=== PATIENT | female | born 1935 | race Caucasian/White ===

== ENCOUNTER 2018-10-22 11:43 | Outpatient (REF) | payer OTHER, SELFPAY ==
[2018-10-22 21:56] LABS: Potassium 3.5 mmol/L (3.5-5.1)
== END 2018-10-22 12:03 ==
LOC: NCHCN 11:43
PROVIDERS: Visit Provider Internal Medicine
DX: I49.9 Cardiac arrhythmia, unspecified (principal)
CPT/HCPCS: 84132

== ENCOUNTER 2018-11-30 09:52 | Outpatient (REF) | payer OTHER, SELFPAY ==
[2018-11-30 13:58] LABS: HCT 37.4 % (36.0-46.0); HGB 13.1 g/dL (12.0-15.5); Mean Corpuscular Hemoglobin 31.6 pg (27.0-33.0); Mean Corpuscular Volume 90.1 fL (80-95); Platelet Count 212 x1000/uL (130-400); RBC 4.15 m/cumm (4.00-5.20); RBC Distribution Width 12.1 % (11.7-14.6); White Blood Cell Count 7.27 k/cumm (4.4-10.8)
[2018-11-30 14:13] LABS: ALT 39 U/L (12-78); AST 23 U/L (15-37); Albumin 3.7 g/dL (3.4-5.0); Alkaline Phosphatase 64 U/L (46-116); Anion Gap 4.7 mmol/L (3-11); BUN 17 mg/dL (7-18); Bilirubin, Total 0.3 mg/dL (0.2-1.0); CO2 34.3 mmol/L (21.0-32.0); CREATININE 0.82 mg/dL (0.55-1.02); Calcium 9.1 mg/dL (8.5-10.1); Chloride 89 mmol/L (98-107); Glucose 106 mg/dL (70-100); Sodium 128 mmol/L (136-145); Total Protein 6.8 g/dL (6.4-8.2)
[2018-11-30 14:19] LABS: Potassium 2.9 mmol/L (3.5-5.1)
== END 2018-11-30 10:12 ==
LOC: NCHCN 09:52
PROVIDERS: PCP Internal Medicine; Visit Provider Internal Medicine
DX: R42 Dizziness and giddiness (principal)
CPT/HCPCS: 80053; 85027

== ENCOUNTER 2018-12-01 09:54 | Outpatient (REF) | payer OTHER, SELFPAY ==
[2018-12-01 13:26] LABS: ESR 31 MM/HR (0-30)
== END 2018-12-01 10:14 ==
LOC: NCHCN 09:54
PROVIDERS: PCP Internal Medicine; Visit Provider Internal Medicine
DX: R51 Headache (principal); I10 Essential (primary) hypertension; R42 Dizziness and giddiness
CPT/HCPCS: 85652

== ENCOUNTER 2018-12-04 00:40 | Outpatient (CLI) | payer OTHER, SELFPAY ==
--- NOTE | 2018-12-04 13:51 | DI.CT_ITS ---
SYMPTOMS/DIAGNOSIS: DISEQUILIBRIUM, R42, BALANCE PROBLEMS, R27.[address]: Noncontrast cranial CT was performed. Note is made of apparent previous bilateral maxillary antrectomies and there is mild mucoperiosteal thickening of the maxillary antra. Ethmoidectomy may have been performed on both sides as well. Mastoid air cells are clear. Orbital structures appear intact. Temporal bone structures appear intact. There is marked generalized cerebral atrophy. There is no evidence of intracranial hemorrhage, mass effect or midline shift. CONCLUSION: Cerebral atrophy. No evidence of acute intracranial process.
== END 2018-12-04 01:00 ==
PROVIDERS: PCP Internal Medicine; Visit Provider Internal Medicine
DX: R42 Dizziness and giddiness (principal); R27.9 Unspecified lack of coordination; G31.1 Senile degeneration of brain, not elsewhere classified
CPT/HCPCS: 70450

== ENCOUNTER 2018-12-22 15:07 | Outpatient (REF) | payer OTHER, SELFPAY ==
[2018-12-22 21:46] LABS: Anion Gap 6.9 mmol/L (3-11); BUN 14 mg/dL (7-18); CO2 31.1 mmol/L (21.0-32.0); CREATININE 0.89 mg/dL (0.55-1.02); Calcium 9.3 mg/dL (8.5-10.1); Chloride 102 mmol/L (98-107); Glucose 97 mg/dL (70-100); Potassium 4.3 mmol/L (3.5-5.1); Sodium 140 mmol/L (136-145)
== END 2018-12-22 15:27 ==
LOC: NCHCN 15:07
PROVIDERS: PCP Internal Medicine; Visit Provider Internal Medicine
DX: I10 Essential (primary) hypertension (principal); E87.6 Hypokalemia; E87.1 Hypo-osmolality and hyponatremia; R42 Dizziness and giddiness
CPT/HCPCS: 80048

== ENCOUNTER → 2019-04-20 10:20 | Outpatient (BNVA) | payer OTHER, SELFPAY | PROVIDERS: PCP Internal Medicine; Referring Provider Otolaryngology; Visit Provider Psychiatry & Neurology Neurology | DX: H55.09 Other forms of nystagmus (principal); R42 Dizziness and giddiness; I10 Essential (primary) hypertension | CPT/HCPCS: 99205 ==

== ENCOUNTER 2019-04-28 00:47 | Outpatient (CLI) | payer OTHER, SELFPAY ==
--- NOTE | 2019-04-28 09:36 | DI.MRI_ITS ---
SYMPTOM/DIAGNOSIS: ATAXIA, R55.09, NYSTAGMUS, DIZZINESS, R42 BRAIN MRI: Comparison is made with head CT dated 12/04/18. T 2 sagittal, T 1, T 2, FLAIR, diffusion and gradient echo axial sequences were performed. Severe symmetric cerebral atrophy is again noted. There are mild white matter changes of small vessel disease. There is no superimposed infarct, hemorrhage or mass. The ventricles are normal in size. There is mild sinus mucosal thickening and evidence of previous sinus surgery. The mastoid air cells appear intact. The vascular flow voids are grossly intact. The orbits are unremarkable. IMPRESSION: Atrophy, no acute abnormality.
== END 2019-04-28 01:07 ==
PROVIDERS: PCP Internal Medicine; Visit Provider Psychiatry & Neurology Neurology
DX: R42 Dizziness and giddiness (principal); H55.09 Other forms of nystagmus; G31.89 Other specified degenerative diseases of nervous system; R90.82 White matter disease, unspecified
CPT/HCPCS: 70551

== ENCOUNTER 2019-05-01 08:07 | Outpatient (CLI) | payer OTHER, SELFPAY ==
[2019-05-01 10:42] LABS: Vitamin B12 408 pg/mL (193-986)
[2019-05-03 13:55] LABS: Albumin 65.1 % (55.8-66.1); Total Protein 7.2 g/dl (6.3-8.2)
[2019-05-03 14:43] LABS: ANA Interpretation Negative (NEGAT)
[2019-05-04 10:45] LABS: Copper, Serum 1.17 mcg/mL (0.75-1.45)
[2019-05-04 11:43] LABS: Ceruloplasmin 26.6 mg/dL
[2019-05-05 00:57] LABS: Thiamine (Vitamin B1), WB 98 nmol/L (70-180)
== END 2019-05-01 08:27 ==
PROVIDERS: PCP Internal Medicine; Visit Provider Psychiatry & Neurology Neurology
DX: G62.9 Polyneuropathy, unspecified (principal); H55.09 Other forms of nystagmus; R42 Dizziness and giddiness
CPT/HCPCS: 36415; 82390; 82525; 82607; 82746; 84165; 84425; 86038

== ENCOUNTER → 2019-05-18 08:03 | Outpatient (BNVA) | payer OTHER, SELFPAY | PROVIDERS: PCP Internal Medicine; Referring Provider Internal Medicine; Visit Provider Psychiatry & Neurology Neurology | DX: H55.09 Other forms of nystagmus (principal); R42 Dizziness and giddiness; R26.9 Unspecified abnormalities of gait and mobility; I10 Essential (primary) hypertension | CPT/HCPCS: 99214 ==

== ENCOUNTER 2020-02-29 11:55 | Outpatient (REF) | payer OTHER, SELFPAY ==
[2020-02-29 21:20] LABS: HCT 41.6 % (36.0-46.0); HGB 14.2 g/dL (12.0-15.5); Mean Corp. HGB Concentration 34.1 g/dL (32.0-36.0); Mean Corpuscular Hemoglobin 31.8 pg (27.0-33.0); Mean Corpuscular Volume 93.1 fL (80-95); Platelet Count 184 x1000/uL (130-400); RBC 4.47 m/cumm (4.00-5.20); RBC Distribution Width 12.7 % (11.7-14.6); White Blood Cell Count 6.09 k/cumm (4.4-10.8)
[2020-02-29 22:03] LABS: ALT 29 U/L (14-59); AST 22 U/L (15-37); Albumin 4.1 g/dL (3.4-5.0); Alkaline Phosphatase 61 U/L (46-116); Anion Gap 7.6 mmol/L (3-11); BUN 14 mg/dL (7-18); Bilirubin, Total 0.4 mg/dL (0.2-1.0); CO2 28.4 mmol/L (21.0-32.0); CREATININE 0.76 mg/dL (0.55-1.02); Calcium 9.3 mg/dL (8.5-10.1); Chloride 101 mmol/L (98-107); Glucose 108 mg/dL (74-106); Potassium 4.9 mmol/L (3.5-5.1); Sodium 137 mmol/L (136-145); TSH 2.25 uIU/mL (0.36-3.74); Total Protein 7.1 g/dL (6.4-8.2); Vitamin B12 353 pg/mL (193-986)
[2020-03-02 04:52] LABS: Vitamin D 25 Total 28.2 ng/ml (30-100)
== END 2020-02-29 12:15 ==
LOC: NCHCN 11:55
PROVIDERS: PCP Internal Medicine; Visit Provider Internal Medicine
DX: E55.9 Vitamin D deficiency, unspecified (principal); G62.9 Polyneuropathy, unspecified; R42 Dizziness and giddiness; I10 Essential (primary) hypertension
CPT/HCPCS: 80053; 82306; 85027; 82607; 84443

== ENCOUNTER 2020-07-03 15:03 | Outpatient (REF) | payer OTHER, SELFPAY ==
[2020-07-03 21:56] LABS: Anion Gap 11.9 mmol/L (3-11); BUN 21 mg/dL (7-18); CO2 24.1 mmol/L (21.0-32.0); CREATININE 0.76 mg/dL (0.55-1.02); Calcium 9.4 mg/dL (8.5-10.1); Chloride 101 mmol/L (98-107); Glucose 95 mg/dL (74-106); Potassium 4.4 mmol/L (3.5-5.1); Sodium 137 mmol/L (136-145)
== END 2020-07-03 15:23 ==
LOC: NCHCN 15:03
PROVIDERS: PCP Internal Medicine; Visit Provider Internal Medicine
DX: I10 Essential (primary) hypertension (principal); R42 Dizziness and giddiness; I25.10 Atherosclerotic heart disease of native coronary artery without angina pectoris; G62.9 Polyneuropathy, unspecified; J45.30 Mild persistent asthma, uncomplicated
CPT/HCPCS: 80048

== ENCOUNTER → 2021-05-18 11:18 | Outpatient (BNVA) | payer OTHER, SELFPAY | PROVIDERS: PCP Internal Medicine; Referring Provider Internal Medicine; Visit Provider Surgery | DX: M79.89 Other specified soft tissue disorders (principal); R22.2 Localized swelling, mass and lump, trunk | CPT/HCPCS: 99203; 99214 ==

== ENCOUNTER 2021-06-08 01:05 | Outpatient (CLI) | payer MEDICARE, SELFPAY ==
--- NOTE | 2021-06-08 06:57 | DI.MRI_ITS ---
Exam(s) MR PELVIS WO/W EXAM: MR PELVIS WO/W CLINICAL HISTORY: Left upper buttock mass,M79.89 TECHNIQUE: Multiplanar multisequence MRI of Pelvis was performed. CONTRAST MATERIAL: IV Contrast: 14 mL of Dotarem contrast administered. COMPARISON: No exams were available for comparison FINDINGS: Bones: There is no fracture or contusion pattern. No bone marrow edema is seen. The visualized SI j oint is well maintained. Musculotendinous structures: Musculotendinous structures demonstrate no abnormality. Intrapelvic str uctures demonstrate no significant abnormality. Soft tissues: There is a 3.6 transverse by 3.6 AP by 3.7 craniocaudad cm mass in the subcutaneous tis sues of the left buttock. It is just deep to the skin surface. There is no involvement of the under lying gluteal muscles or iliac bone. There is minimal associated edema in the surrounding soft tissu es. The mass is hypo intense on the T1 weighted images. There is central hyperintensity on the T2 w eighted images. The mass has a peripheral thick wall with fluid signal centrally. There is enhancem ent following contrast administration particularly in the inner wall. IMPRESSION: 3.7 cm subcutaneous mass in the left buttock corresponding to the palpable abnormality. Differential considerations include, but are not limited to, fibromatosis, abscess, metastasis or sarcoma. Biops y should be considered for further evaluation. DATA REPOSITORY:
[2021-06-08 08:28] LABS: CREATININE 0.8 mg/dL (0.55-1.02)
[2021-06-08] MEDS: Normal Saline Flush 10 ML SYR IVP (08:46)
[2021-06-08] MEDS: Gadoterate meglumine 20 ML VIAL 14 ML IVP (08:48)
== END 2021-06-08 01:25 ==
PROVIDERS: PCP Internal Medicine; Visit Provider Surgery
DX: M79.89 Other specified soft tissue disorders (principal); Z01.812 Encounter for preprocedural laboratory examination; R22.2 Localized swelling, mass and lump, trunk
CPT/HCPCS: 72197; 82565

== ENCOUNTER → 2021-06-19 10:45 | Outpatient (BNVA) | payer MEDICARE, SELFPAY | PROVIDERS: PCP Internal Medicine; Referring Provider Internal Medicine; Visit Provider Surgery | DX: M79.89 Other specified soft tissue disorders (principal) | CPT/HCPCS: 99213 ==

== ENCOUNTER 2021-06-25 03:27 | Outpatient (CLI) | payer MEDICARE, SELFPAY ==
[2021-06-25 10:29] LABS: Source Nasal/Nares
[2021-06-25 13:39] LABS: COVID-19 PCR Negative (Negative)
== END 2021-06-25 03:28 | disposition home or self-care (01) ==
LOC: LBO 03:27
PROVIDERS: PCP Internal Medicine; Visit Provider Surgery
DX: Z20.822 Contact with and (suspected) exposure to COVID-19 (principal); Z01.818 Encounter for other preprocedural examination
CPT/HCPCS: 87635

== ENCOUNTER 2021-06-27 06:11 | Day surgery (SDC) | payer MEDICARE, SELFPAY ==
--- NOTE | 2021-06-27 06:29 | ROE_ITS ---
Date of service: 06/27/21 Time of Service: 07:30 Operative Note Operative Note DATE OF PROCEDURE: 06/27/21 PRE-OP DIAGNOSIS: left upper Buttock mass POST-OP DIAGNOSIS: same PROCEDURE: Excision of left upper buttock mass SURGEON: Amalia Varner DRIVING TEACHER: Delicia Sarkar ANESTHESIA TYPE: Local By Surgeon (exparel mixed with 0.25% Bupivocaine) and General:No Airway Refer to Anesthesia Record ESTIMATED BLOOD LOSS: 25 PATHOLOGY: other (mass 4 cm) COMPLICATIONS: None Patient was transported to: PACU Patient's condition: stable Implants: ABRAHAN dressing applied in the Operating room Indications: MRI showed a 3.7 cm mass. Differential includes benign and malignant process. Discussed core needle biopsy vs excisional biopsy. In both cases she may need more then one surgery depending on results. Sweta wants the mass removed. We discussed procedure including its complications. Risks, benefits and complications were reviewed of both excisional biopsy and needle core biopsy. Patient wishes to proceed with excisional biopsy. Complications of excisional biopsy include but are not limited to bleeding, infection, seroma, hematoma, wound dehiscence, skin necrosis and adverse reaction to the medications. Questions were entertained and answered to her satisfaction and she wished to proceed. No guarantees were given or implied. I will have her stop her aspirin 5 days prior to the procedure. Proceed with excisional biopsy of left buttock mass under MAC sedation with lo [place]. Findings: 4 cm hard mass attached to the skin. Procedure Description: After informed consent was obtained and the area was marked and same-day surgery the patient was taken back to the operating room and placed in a right lateral position. Monitors were applied and a timeout was done. Name, date of , allergies to medications, antibiotic prophylaxis, DVT prophylaxis and procedure to be done and site were reviewed. Fire risk was assessed. Next the patient's left upper buttock was prepped and draped in a sterile surgical fashion. The patient was placed under MAC sedation. The above local anesthetic was then injected into the dermis and subcutaneous tissue around the mass. Once the skin was numb a 4 cm elliptical incision was made over the palpable mass. Dissection was done with cautery around the mass. Grossly there was about a centimeter of normal tissue around the palpable mass. Once it was completely dissected it was removed and marked with suture. The specimen was removed from the operating field and placed in formalin for pathology. There were couple of bleeders which were grasped with hemostats. Both of these vessels were suture-ligated. The wound was irrigated and small bleeders were cauterized. Once the cavity was completely dry it was closed with interrupted 3-0 Vicryl suture. The dermis was closed with a running 4-0 Vicryl stitch. The skin was cleaned and dried and a 10 x 20 abrahan dressing was applied. Sponge, instrument and needle counts were correct. The patient was allowed to wake up slowly and was then transferred over to her rmoose and taken back to same-day surgery in stable condition. There were no immediate complications.
--- NOTE | 2021-06-27 06:31 | W.PM.DSUDISC ---
Discharge Plan Disposition Patient Disposition: HOME Condition: Good Discharge Details Reason For Visit: left buttock mass Attending Provider: Amalia Varner Primary Care Provider: Wang Guzmán Home Meds and New Rx's Prescriptions: Continued metoprolol succinate 25 mg tablet extended release 24 hr 25 mg PO DAILY RF: 0 Metamucil (sugar) Powder 1 tbsp PO DAILY RF: 0 albuterol sulfate [ProAir HFA] 90 mcg/actuation HFA aerosol inhaler 1 puff IH Q6H PRNRF: 0 fluticasone propionate 110 mcg/actuation HFA aerosol inhaler 2 puff IH DAILY RF: 0 pantoprazole 40 mg tablet,delayed release (DR/EC) 40 mg PO HS PRNRF: 0 Serevent Diskus 50 mcg/dose blister with device 1 inh inhalation DAILY RF: 0 sodium chloride [Verónica 128] 5 % drops 1 drp ophthalmic (eye) QHS RF: 0 lovastatin 40 MG tablet 40 mg PO HS RF: 0 aspirin [Aspirin Low-Strength] 81 MG tablet,chewable 81 mg PO DAILY RF: 0 Discharge Instructions Additional Instructions: Activity at Home after surgery: 1. Make sure you walk outside at least 4 times per day 2. You should be able to climb a flight of stairs 3. No driving while in pain or taking pain medications 4. No strenuous activity or heavy lifting for 2 weeks 5. Do not sit for long periods Diet, Nutrition, & wound healin. Avoid alcohol until after you are recovered from your surgery 2. Make sure to eat plenty of lean protein (meat, fish, eggs, cottage cheese, beans) 3. Eat a variety of fruits and vegetables. Eat plenty of high fiber foods to avoid constipation. 4. Drink plenty of liquids to stay hydrated and avoid constipation Pain Medications: 1. Tylenol 650mg every 6 hours as needed 2. If a narcotic has been prescribed take as directed only for breakthrough pain For Constipation: 1. Take Milk of Magnesia or MiraLax as needed for constipation Other: 1. You may shower daily. Do not scrub the incisions 2. Do not soak the incisions for 1 week 3. You may alternate ice and heat as needed for pain and swelling Wound Care: 1. Keep the incisions clean and dry Please call our office if you develop: 1. Fevers >101.5 2. Nausea or Vomiting 3. Worsening pain 4. Redness and thick discharge from the wounds If after hours please call the Hospital at and ask to speak to the on-call surgeon Referrals: Amalia Varner MD [ [facility] STAFF PHYSICIAN] - 07/03/21 1:45 pm Activity:: Activity as Tolerated Diet:: As Tolerated Discharge Orders Discharge Orders: Discharge Order (Routine); Ordered 06/27/21 Ordered By: Amalia Varner
[2021-06-27 06:42] VITALS: BP 186/56; PULSE 63; RESP 16; TEMP 36.3; O2SAT 99
[2021-06-27 06:46] VITALS: BMI 30.3
--- NOTE | 2021-06-27 06:46 | W.ANESPRE ---
General Info Date of Service Date Performed: 06/27/21 Height: 5 ft Weight: 70.477 kg Body Mass Index (BMI): 30.3 Surgical Procedure: Operation Date: 06/27/21 07:40 Proposed Procedures Side Surgeon p Excision of left buttock soft mass Left Amalia Varner MD Meds Allergies and Home Medications Allergies Allergy/AdvReac Type Severity Reaction Status Date / Time NSAIDS (Non-Steroidal Allergy Mild unknown Verified 06/27/21 06:35 Anti-Inflamma Home Medication Medication Instructions Recorded aspirin [Aspirin Low-Strength] 81 mg PO DAILY 12/13/13 lovastatin 40 mg PO HS 12/13/13 albuterol sulfate 90 mcg/actuation 1 puff IH Q6H PRN 02/08/19 aerosol inhaler fluticasone propionate 110 2 puff IH DAILY gm 02/08/19 mcg/actuation HFA aerosol inhaler pantoprazole 40 mg tablet,delayed 40 mg PO HS PRN 05/18/19 release salmeterol 50 mcg/dose blister 1 inh INHALATION DAILY ea 05/10/21 powder for inhalation sodium chloride 5 % eye drops 1 drp OPHTHALMIC (EYE) QHS 05/10/21 metoprolol succinate 25 mg 25 mg PO DAILY 05/18/21 tablet,extended release 24 hr psyllium seed (sugar) oral powder 1 tbsp PO DAILY 06/19/21 Current Visit Medications: Current Medications Generic Name Dose Route Start Last Admin Trade Name Freq PRN Reason Stop Dose Admin Ringer's Solution 1,000 mls @ 80 mls/hr 06/27/21 06:00 IV 07/17/21 23:59 INFUSION ANGELICA Cefazolin Sodium 2,000 mg/ 100 mls @ 200 mls/hr 06/27/21 06:00 Sodium Chloride IVPB 06/27/21 16:00 PREOP ANGELICA Ondansetron HCl 4 mg/ Sodium 52 mls @ 200 mls/hr 06/27/21 06:33 Chloride IVPB Q6H PRN PRN IV Miscellaneous Supplies 1 each 06/27/21 06:00 Iv Access IV 07/17/21 23:59 DIRECTED ANGELICA Sodium Chloride 0 ml 06/27/21 06:00 Normal Saline Flush 10 Ml Syr IV 07/17/21 23:59 PRN PRN Sodium Chloride 0 ml 06/27/21 06:00 Normal Saline 10 Ml Vial IJ 07/17/21 23:59 DIRECTED PRN Sterile Water 0 ml 06/27/21 06:00 Water,Injection,Sterile 10 Ml Vial IJ 07/17/21 23:59 DIRECTED PRN Tramadol HCl 50 mg 06/27/21 06:33 Tramadol 50 Mg Tab PO Q6H PRN PRN Pain PFSH Active Problems Active Problems: Problem Status Onset Code 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 states in the 80's History of hysterectomy Hx of nasal polypectomy S/P right knee surgery R knee Tobacco Smoking/Tobacco Use Status: Former Tobacco Use Alcohol Alcohol Intake: never Substance Use Substance use: Never Substance use type: does not use Vital Signs and Lab Results Lab Results Blood Type / Crossmatch: No Data to Display Complete Blood Count: No Data to Display Complete Metabolic Panel: Creatinine 0.8 mg/dL (0.55-1.02) 06/08/21 08:10 06/08/21 Estimated GFR/1.73 m2 >= 60.00 (mL/min/1.73m2) 06/08/21 08:10 06/08/21 Liver Function Panel: No Data to Display Coagulation Panel: No Data to Display Cardiac Panel: No Data to Display Arterial Blood Gas: No Data to Display Venous Blood Gas: No Data to Display Pancreas Panel: No Data to Display Thyroid Panel: No Data to Display Infectious Disease: Coronavirus (COVID-19)(PCR) Negative (Negative) 06/25/21 09:25 06/25/21 Coronavirus 2019 Source Nasal/Nares 06/25/21 09:25 06/25/21 Blood Cultures: No Data to Display Toxicology Panel: No Data to Display Imaging and Studies Imaging and Studies Stress Test Summary: Date of study: 03/04/2018 *PATIENT PRESENTATION* Height: 152.4cm (60in) Blood Pressure: Weight: 68.2kg (150lb) BSA: 1.72m^2 Referring physician: Derek Gillespie Ordering physician: Wang Guzmán MD Impressions: Normal study after maximal exercise. Summary: 1. Myocardial perfusion imaging: No myocardial perfusion defects noted. 2. The calculated left ventricular ejection fraction after stress: > 70%. LV global systolic function is normal. No left ventricular regional motion abnormality. 3. Stress ECG conclusions: The stress ECG is negative. 4. Stress: The target heart rate was achieved. There is a normal resting blood pressure with an appropriate response to stress. The patient experienced no chest pain during stress. Exercise capacity is fair (4.8 METS). 5. Imaging information: gated. Image quality reduced due to breast attenuation. Attenuation correction used. Echocardiogram Summary: October 25, 2013 OUTPATIENT ORDERING PHYSICIAN: Angelique Jacobo MD HEIGHT: 5 FT 0 IN WEIGHT: 150 LBS BSA: 1.7 m2 STUDY INDICATIONS: PVCs. FINDINGS: LEFT VENTRICLE: Normal size and systolic function. Normal regional wall motion. Estimated LVEF 70%. RIGHT VENTRICLE: Normal size and systolic function. AORTIC VALVE: Trileaflet, sclerotic. Opens well, without regurgitation. MITRAL VALVE: Opens well, with mild regurgitation. TRICUSPID VALVE: Trace regurgitation. RSV/PA PRESSURE: RSV pressure 35 mmHg. PULMONIC VALVE: Trace regurgitation. LEFT/RIGHT ATRIA: Normal biatrial size. DIASTOLIC INDICES: Normal. GREAT VESSELS: Normal. PERICARDIUM: No effusion. RHYTHM: SUMMARY: Rhythm is sinus. The left ventricle shows normal size and systolic function. Estimated LVEF 70%. Normal LA size. The aortic valve is trileaflet, thickened. Opens well, without regurgitation. Mitral valve opens normally with mild regurgitation present. The right ventricle is normal. Normal pulmonary artery pressure. Other Study Summary:: HOLTERDATE OF SERVICE: October 18, 2013 HOLTER INTERPRETATION: Baseline rhythm sinus. Rare single PAC. 2 bursts SVT, longest 4 beats duration, fastest 181 beats per minute. No atrial fibrillation. Very frequent single PVCs, 4311 total. No VT. No bradycardia. 1 diary event during the sinus rhythm with single PVC. No symptoms. Mean one-minute heart rate 83 beats per minute, range 65 - 117 beats per minute. Anesthesia Assessment and Plan Anesthesia History Personal History: No History of Anesthesia Complications Family History: No Family History of Anesthesia Complications Exercise Tolerance Exercise Tolerance: Metabolic Equivalents>4 Pertinent Negatives Pertinent Negatives: No Symptoms of GERD, No Major Cardiovascular Symptoms or Complaints, No Major Pulmonary Symptoms or Complaints and No History of CVA/TIA Cardiac & Pulmonary Exam Cardiac Exam: Normal S1/S2 Heart Sounds Pulmonary Exam: Clear Bilateral Breath Sounds Implantable Cardiac Device Does patient have a Pacemaker or an ICD?: No Airway Exam Known Difficult Airway: No Mallampati Class: 2 Mouth Opening: Normal (> 3cm) Thyromental Distance: Greater than 3 cm Neck Range of Motion: Full ROM Neck Circumference: Normal Teeth Condition: Normal Dentition and Removable Dentures/Plates Upper ASA Classification ASA Score: ASA 2 Emergency Case?: No NPO Status NPO Status: NPO Clears >2 hours, Solids >8 hours Anesthesia Plan Resuscitation Status: Full Code Anesthesia Technique: General Anesthesia Airway Planned: Natural Airway Monitors Used: Standard Monitors
[2021-06-27] MEDS: Lactated Ringers 1,000 ML 80 ML IV (07:05)
[2021-06-27] MEDS: ceFAZolin 2,000 MG in Normal Saline 100 ML 200 MG IVPB (07:28)
--- NOTE | 2021-06-27 07:45 | SOFT_PTH ---
PATIENT: Sweta Marie LOC: [facility] U#:[id number] AGE/SX: 85/F ROOM: RE06/27/[address]: Amalia Varner MD : [id number] BED: DIS: 06/27/2021 SPEC #: [id number] RECD: 06/27/21 12:47 STATUS: OSMAR REEladio #: [id number] MYNOR: 06/27/21 07:[address]: Amalia Varner DEPT: Surgical Specimen RECD BY: Darlene Person ENTERED: 06/27/21 12:48 SP TYPE: SOFT OTHR DR: Wang Guzmán Tissues: 1 - SOFT TISSUE MISC (INC. LIPOMA) Procedures: IMMUNOPEROXIDASE STAIN GROSS AND MICRO LEVEL 5 Comments: [id number]
[2021-06-27] MEDS: Bupivacaine 0.25% Pres-Free 30 ML VIAL (08:09)
[2021-06-27 08:19] VITALS: BP 120/63; PULSE 62; RESP 18; TEMP 36.4; O2SAT 95
--- NOTE | 2021-06-27 08:20 | W.ANESPOSTOP ---
Postoperative Evaluation Date, Time and Location Date Performed: 06/27/21 Time Performed: 08:21 Patient Location: Day Surgery Unit Vital Signs Most Recent Imported Vital Signs: Most Recent Vital Signs Temp Pulse Resp BP Pulse Ox 36.3 C L 63 16 186/56 H 99 06/27/21 06:42 06/27/21 06:42 06/27/21 06:42 06/27/21 06:42 06/27/21 06:42 Most Recent Manually Entered Vital Signs: Adult Blood Pressure: 120/63 Heart Rate: 63 Respirations: 12 Oxygen Saturation (%): 94 Temperature (C): 36.4 C Pain Score (0-10 Scale): 0 Pain Score Most Recent Pain Score: Most Recent Pain Score Pain Level 0 06/27/21 06:42 Assessment Mental Status: Awake (Alert & Oriented to Patient Baseline) Airway and Respiratory Function: Patent airway with normal (patient baseline) respiratory exam Cardiovascular Function: Hemodynamically Stable Hydration Status: Adequately Hydrated Nausea & Vomiting: No Nausea or Vomiting Pain: Pt. Denies Any Pain Peripheral Nerve Block: Patient did not receive a nerve block
[2021-06-27 08:22] VITALS: BP 120/63; PULSE 63; RESP 12; TEMPC 36.4; O2SAT 94
[2021-06-27 08:50] VITALS: BP 154/68; PULSE 60; RESP 18; TEMP 36.3; O2SAT 97
[2021-06-27] MEDS: traMADol 50 MG TAB PO (09:04)
[2021-06-27 09:35] VITALS: BP 151/63; PULSE 62; RESP 20; TEMP 36.3; O2SAT 98
== END 2021-06-27 10:00 | disposition home or self-care (01) ==
PROVIDERS: PCP Internal Medicine; Visit Provider Surgery
PROC: (CPT 21931; principal; 2021-06-27 07:30)
DX: R22.2 Localized swelling, mass and lump, trunk (principal); I25.10 Atherosclerotic heart disease of native coronary artery without angina pectoris; I10 Essential (primary) hypertension; C85.19 Unspecified B-cell lymphoma, extranodal and solid organ sites
CPT/HCPCS: 21931; 97607; 88304; 88307; 88361; J0690; J1100; J1885; J2001; J2250; J2405

== ENCOUNTER → 2021-07-03 13:28 | Outpatient (BNVA) | payer MEDICARE, SELFPAY | PROVIDERS: PCP Internal Medicine; Referring Provider Internal Medicine; Visit Provider Surgery | DX: Z48.817 Encounter for surgical aftercare following surgery on the skin and subcutaneous tissue (principal) ==

== ENCOUNTER → 2021-07-10 09:19 | Outpatient (BNVA) | payer MEDICARE, SELFPAY | PROVIDERS: PCP Internal Medicine; Referring Provider Internal Medicine; Visit Provider Surgery | DX: Z48.817 Encounter for surgical aftercare following surgery on the skin and subcutaneous tissue (principal); C85.19 Unspecified B-cell lymphoma, extranodal and solid organ sites ==

== ENCOUNTER 2021-11-07 08:07 | Outpatient (CLI) | payer MEDICARE, SELFPAY ==
[2021-11-07 09:07] LABS: Abs Immature Grans 0.02 10^3/uL (0.0-0.06); Absolute Basophil Count 0.03 10^3/uL (0.0-0.2); Absolute Eosinophil Count 0.15 10^3/uL (0.0-0.7); Absolute Monocyte Count 0.61 10^3/uL (0.1-0.8); Absolute Neutrophil Count 3.71 10^3/uL (1.2-6.7); Basophils % 0.4; Eosinophils % 2.2; HCT 43.8 % (36.0-46.0); HGB 14.1 g/dL (11.2-15.7); Immature Grans % 0.3; Lymphocytes % 33.7; MCH 29.8 pg (27.0-33.0); MCHC 32.2 % (32.0-36.0); MCV 92.6 fL (80-95); MPV 9.9 fL (8.0-11.0); Monocytes % 8.9; Neutrophils % 54.5; Nucleated RBC 0 %; Platelet Count 187 10^3/uL (130-400); RBC 4.73 10^6/uL (3.93-5.22); RDW 12.8 % (11.7-14.6); RDW-SD 43.8 fL; WBC 6.82 10^3/uL (4.4-10.8)
[2021-11-07 09:22] LABS: ALT 26 U/L (14-59); AST 22 U/L (15-37); Alkaline Phosphatase 63 U/L (46-116); Anion Gap 8.2 mmol/L (3-11); BUN 17 mg/dL (7-18); Bilirubin, Total 0.4 mg/dL (0.2-1.0); CO2 28.8 mmol/L (21.0-32.0); CREATININE 0.8 mg/dL (0.55-1.02); Chloride 102 mmol/L (98-107); Glucose 124 mg/dL (74-106); LDH 166 U/L (81-234); Potassium 4.4 mmol/L (3.5-5.1); Sodium 139 mmol/L (136-145); Total Protein 7.7 g/dL (6.4-8.2)
[2021-11-08 09:19] LABS: IgA 106 mg/dL (85-499); IgG 823 mg/dL (610-1,616); IgM 58 mg/dL (35-242)
== END 2021-11-07 08:08 | disposition home or self-care (01) ==
LOC: LBO 08:14
PROVIDERS: PCP Internal Medicine; Visit Provider Internal Medicine Hematology & Oncology
DX: C82.10 Follicular lymphoma grade II, unspecified site (principal)
CPT/HCPCS: 36415; 80053; 82784; 83615; 85025

== ENCOUNTER 2022-05-23 15:31 | Outpatient (CLI) | payer MEDICARE, SELFPAY ==
[2022-05-23 14:49] LABS: Abs Immature Grans 0.02 10^3/uL (0.0-0.06); Absolute Basophil Count 0.04 10^3/uL (0.0-0.2); Absolute Eosinophil Count 0.09 10^3/uL (0.0-0.7); Absolute Lymphocyte Count 0.99 10^3/uL (1.2-3.4); Absolute Monocyte Count 0.52 10^3/uL (0.1-0.8); Absolute Neutrophil Count 4.46 10^3/uL (1.2-6.7); Basophils % 0.7; Eosinophils % 1.5; HCT 42.1 % (36.0-46.0); HGB 14.1 g/dL (11.2-15.7); Immature Grans % 0.3; Lymphocytes % 16.2; MCH 30.4 pg (27.0-33.0); MCHC 33.5 % (32.0-36.0); MCV 91 fL (80-95); MPV 10.1 fL (8.0-11.0); Monocytes % 8.5; Neutrophils % 72.8; Platelet Count 155 10^3/uL (130-400); RBC 4.64 10^6/uL (3.93-5.22); RDW 12.8 % (11.7-14.6); RDW-SD 42.6 fL; WBC 6.12 10^3/uL (4.4-10.8)
[2022-05-23 14:59] LABS: C-Reactive Protein 0.51 mg/dL (0.0-0.3)
[2022-05-23 15:02] LABS: ESR 10 mm/hr (0-30)
== END 2022-05-23 15:32 | disposition home or self-care (01) ==
LOC: LBO 15:34
PROVIDERS: PCP Internal Medicine
DX: M31.6 Other giant cell arteritis (principal)
CPT/HCPCS: 36415; 85652; 85025; 86140

== ENCOUNTER → 2022-06-04 02:39 | Outpatient (CLI) | payer MEDICARE, SELFPAY ==
--- NOTE | 2022-06-04 15:30 | DI.CT_ITS ---
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 TECHNIQUE: Imaging Protocol: Axial computed tomography images with coronal and sagittal reformatted images were created and reviewed COMPARISON: CT CT HEAD WO from 12/04/2018 FINDINGS: Ventricles and Extra axial spaces: Normal in size and morphology for the patient's age. Hemorrhage: None. Cerebral parenchyma: There is no acute territorial infarct. There are areas of decreased attenuation in the white matter consistent with small vessel ischemic disease. Midline shift: None. Brainstem/Cerebellum: Normal. Calvarium: Normal. Visualized Paranasal sinuses/Mastoids: Postsurgical changes are seen in the sinuses. No fluid levels are seen. The mastoid air cells are clear. Soft Tissues: Unremarkable. IMPRESSION: No acute intracranial process. RADIATION DOSE DELIVERED: 692.22mGy.cm Total DLP DATA REPOSITORY: All CT scans at this facility are submitted to the National Radiology Data Registry (NRDR) Dose Index Registry (DIR) with the [employer] (A[employer]). RADIATION OPTIMIZATION: All CT scans at this facility use at least one of these dose optimization te chniques: automated exposure control; mA and/or kV adjustment per patient size (includes targeted exa ms where dose is matched to clinical indication); or iterative reconstruction.
== END ==
PROVIDERS: PCP Internal Medicine; Visit Provider Internal Medicine
DX: M31.6 Other giant cell arteritis (principal); G44.89 Other headache syndrome
CPT/HCPCS: 70450

== ENCOUNTER 2022-11-18 15:58 | Outpatient (REF) | payer MEDICARE, SELFPAY ==
[2022-11-18 19:14] LABS: HCT 41.4 % (36.0-46.0); HGB 13.8 g/dL (11.2-15.7); MCH 30.7 pg (27.0-33.0); MCHC 33.3 % (32.0-36.0); MCV 92 fL (80-95); MPV 10.9 fL (8.0-11.0); Platelet Count 193 10^3/uL (130-400); RBC 4.49 10^6/uL (3.93-5.22); RDW 12.8 % (11.7-14.6); RDW-SD 43.2 fL; WBC 6.22 10^3/uL (4.4-10.8)
[2022-11-18 19:18] LABS: Anion Gap 6.8 mmol/L (3-11); BUN 17 mg/dL (7-18); CO2 30.2 mmol/L (21.0-32.0); CREATININE 0.8 mg/dL (0.55-1.02); Chloride 101 mmol/L (98-107); Estimated GFR 71.27 (mL/min/1.73m2); Glucose 129 mg/dL (74-106); Potassium 4.1 mmol/L (3.5-5.1); Sodium 138 mmol/L (136-145)
== END 2022-11-18 15:59 | disposition home or self-care (01) ==
LOC: NCHCN 15:58
PROVIDERS: PCP Internal Medicine; Visit Provider Internal Medicine
DX: I10 Essential (primary) hypertension (principal); R42 Dizziness and giddiness
CPT/HCPCS: 80048; 85027

== ENCOUNTER 2022-11-27 02:51 | Outpatient (CLI) | payer MEDICARE, SELFPAY ==
[2022-11-27 11:10] LABS: Abs Immature Grans 0.03 10^3/uL (0.0-0.06); Absolute Basophil Count 0.04 10^3/uL (0.0-0.2); Absolute Eosinophil Count 0.14 10^3/uL (0.0-0.7); Absolute Lymphocyte Count 2.71 10^3/uL (1.2-3.4); Absolute Monocyte Count 0.73 10^3/uL (0.1-0.8); Absolute Neutrophil Count 4.26 10^3/uL (1.2-6.7); Basophils % 0.5; Eosinophils % 1.8; HCT 42.7 % (36.0-46.0); HGB 14.1 g/dL (11.2-15.7); Immature Grans % 0.4; Lymphocytes % 34.3; MCH 30.3 pg (27.0-33.0); MCV 92 fL (80-95); MPV 10.6 fL (8.0-11.0); Monocytes % 9.2; Neutrophils % 53.8; Platelet Count 179 10^3/uL (130-400); RBC 4.66 10^6/uL (3.93-5.22); RDW-SD 43.4 fL; WBC 7.91 10^3/uL (4.4-10.8)
[2022-11-27 11:33] LABS: ALT 35 U/L (14-59); AST 21 U/L (15-37); Alkaline Phosphatase 72 U/L (46-116); Anion Gap 7.9 mmol/L (3-11); BUN 13 mg/dL (7-18); Bilirubin, Total 0.4 mg/dL (0.2-1.0); CO2 30.1 mmol/L (21.0-32.0); CREATININE 0.9 mg/dL (0.55-1.02); Calcium 9.2 mg/dL (8.5-10.1); Chloride 104 mmol/L (98-107); Estimated GFR 61.87 (mL/min/1.73m2); Glucose 98 mg/dL (74-106); LDH 228 U/L (81-234); Potassium 4.4 mmol/L (3.5-5.1); Sodium 142 mmol/L (136-145); Total Protein 7.5 g/dL (6.4-8.2)
== END 2022-11-27 02:52 | disposition home or self-care (01) ==
PROVIDERS: Internal Medicine Hematology & Oncology; PCP Internal Medicine; Visit Provider Internal Medicine Hematology & Oncology
DX: C82.19 Follicular lymphoma grade II, extranodal and solid organ sites (principal)
CPT/HCPCS: 36415; 80053; 83615; 85025

== ENCOUNTER 2023-01-10 13:17 | Outpatient (CLI) | payer MEDICARE, SELFPAY ==
[2023-01-10 13:11] LABS: ESR 12 mm/hr (0-30)
[2023-01-10 13:30] LABS: Hemoglobin A1C 6.1 % (<5.7)
[2023-01-10 13:39] LABS: Calculated LDL 64 mg/dL (<100); Cholesterol 178 mg/dL (<200); Glucose 189 mg/dL (74-106); HDL Cholesterol 51 mg/dL (40-60); Triglyceride 316 mg/dL (<150)
[2023-01-10 13:47] LABS: C-Reactive Protein 0.08 mg/dL (0.0-0.3)
== END 2023-01-10 13:18 | disposition home or self-care (01) ==
LOC: LBO 13:18
PROVIDERS: PCP Internal Medicine; Visit Provider Optometrist
DX: H34.8120 Central retinal vein occlusion, left eye, with macular edema (principal)
CPT/HCPCS: 36415; 80061; 82947; 85652; 83036; 86140

== ENCOUNTER 2023-05-28 14:09 | Outpatient (CLI) | payer MEDICARE, SELFPAY ==
[2023-05-28 12:46] LABS: Abs Immature Grans 0.02 10^3/uL (0.0-0.06); Absolute Basophil Count 0.04 10^3/uL (0.0-0.2); Absolute Eosinophil Count 0.12 10^3/uL (0.0-0.7); Absolute Monocyte Count 0.54 10^3/uL (0.1-0.8); Absolute Neutrophil Count 3.84 10^3/uL (1.2-6.7); Basophils % 0.6; Eosinophils % 1.7; HCT 39.4 % (36.0-46.0); HGB 13.2 g/dL (11.2-15.7); Immature Grans % 0.3; Lymphocytes % 37.2; MCH 30.6 pg (27.0-33.0); MCHC 33.5 % (32.0-36.0); MCV 91 fL (80-95); MPV 10.1 fL (8.0-11.0); Monocytes % 7.4; Neutrophils % 52.8; Platelet Count 188 10^3/uL (130-400); RBC 4.31 10^6/uL (3.93-5.22); RDW 12.7 % (11.7-14.6); RDW-SD 42.4 fL; WBC 7.26 10^3/uL (4.4-10.8)
[2023-05-28 13:06] LABS: ALT 27 U/L (14-59); AST 20 U/L (15-37); Albumin 3.7 g/dL (3.4-5.0); Alkaline Phosphatase 69 U/L (46-116); Anion Gap 8.7 mmol/L (3-11); BUN 13 mg/dL (7-18); Bilirubin, Total 0.3 mg/dL (0.2-1.0); CO2 26.3 mmol/L (21.0-32.0); CREATININE 0.8 mg/dL (0.55-1.02); Calcium 9.1 mg/dL (8.5-10.1); Chloride 101 mmol/L (98-107); Estimated GFR 71.27 (mL/min/1.73m2); Glucose 154 mg/dL (74-106); LDH 171 U/L (81-234); Potassium 3.9 mmol/L (3.5-5.1); Sodium 136 mmol/L (136-145); Total Protein 7.2 g/dL (6.4-8.2)
== END 2023-05-28 14:10 | disposition home or self-care (01) ==
LOC: LBO 14:09
PROVIDERS: PCP Internal Medicine; Visit Provider Internal Medicine Hematology & Oncology
DX: C82.19 Follicular lymphoma grade II, extranodal and solid organ sites (principal)
CPT/HCPCS: 36415; 80053; 83615; 85025

== ENCOUNTER 2023-10-16 13:30 | Emergency (ER) | payer MEDICARE, SELFPAY ==
[2023-10-16 13:39] VITALS: BP 210/71; PULSE 76; RESP 18; TEMP 36.8; O2SAT 97
--- NOTE | 2023-10-16 14:05 | W.ED.GENAD ---
Discharge Plan Discharge Details Chief Complaint: HeadInjury Primary Care Provider: Wang Guzmán ED Provider: Tri Fontanez Home Meds and New Rx's Prescriptions: No Action metoprolol succinate 25 mg tablet extended release 24 hr 25 mg PO DAILY Metamucil (sugar) Powder 1 tbsp PO DAILY albuterol sulfate [ProAir HFA] 90 mcg/actuation HFA aerosol inhaler 1 puff IH Q6H PRN fluticasone propionate 110 mcg/actuation HFA aerosol inhaler 2 puff IH DAILY pantoprazole 40 mg tablet,delayed release (DR/EC) 40 mg PO HS PRN Patient Comments: Pt. states she takes prn. Serevent Diskus 50 mcg/dose blister with device 1 inh inhalation DAILY sodium chloride [Verónica 128] 5 % drops 1 drp ophthalmic (eye) QHS lovastatin 40 MG tablet 40 mg PO HS aspirin [Aspirin Low-Strength] 81 MG tablet,chewable 81 mg PO DAILY tramadol [Ultram] 50 mg tablet 50 mg PO Q6H PRNQty: 14 0RF HPI General Date/Time Provider Initiated Documentation: 10/16/23 13:35. HPI Narrative: Sweta is an 87-year-old female who presents to the emergency department for evaluation of head injury. She reports that she turned around quickly while putting something in the microwave, causing her to slip and fall, hitting her head on the microwave stand. She denies loss of consciousness, headache, vision changes, neck pain, dental damage, back pain, nausea/vomiting, loss of bowel or bladder control, extremity numbness/tingling/weakness. She is not on any anticoagulation. She does have a longstanding history of vertigo, has had this extensively treated and managed by her doctors. Related Data Home Medications Medication Instructions Recorded Confirmed aspirin 81 mg chewable tablet 81 mg PO DAILY 12/13/13 07/10/21 (Aspirin Low-Strength) lovastatin 40 mg tablet 40 mg PO HS 12/13/13 07/10/21 albuterol sulfate 90 mcg/actuation 1 puff inhalation Q6H PRN 02/08/19 07/10/21 aerosol inhaler (ProAir HFA) fluticasone propionate 110 2 puff inhalation DAILY 02/08/19 07/10/21 mcg/actuation HFA aerosol inhaler pantoprazole 40 mg tablet,delayed 40 mg PO HS PRN 05/18/19 07/10/21 release salmeterol 50 mcg/dose blister 1 inh inhalation DAILY 05/10/21 07/10/21 powder for inhalation (Serevent Diskus) sodium chloride 5 % eye drops 1 drp ophthalmic (eye) QHS 05/10/21 07/10/21 (Verónica 128) metoprolol succinate 25 mg 25 mg PO DAILY 05/18/21 07/10/21 tablet,extended release 24 hr psyllium seed (sugar) oral powder 1 tbsp PO DAILY 06/19/21 07/10/21 (Metamucil (sugar) oral powder) tramadol 50 mg tablet (Ultram) 50 mg PO Q6H PRN #14 tabs 06/27/21 07/10/21 Previous Rx's Medication Instructions Recorded tramadol 50 mg tablet (Ultram) 50 mg PO Q6H PRN #14 tabs 06/27/21 Allergies Allergy/AdvReac Type Severity Reaction Status Date / Time NSAIDS (Non-Steroidal Allergy Mild unknown Verified 07/10/21 09:20 Anti-Inflamma General Stated Complaint: HeadInjury KRISTI: 3 Review of Systems Narrative: see HPI Exam Const General: cooperative, healthy appearing, comfortable and no acute distress Orientation: alert, awake and oriented x3 HENMT Head: normal to inspection, no palpable skull fracture and scalp lesion (2 cm linear laceration to occiput) Ears: hearing grossly normal bilaterally and TM's normal bilaterally General nose exam: external nose normal and no epistaxis Face and sinus: normal facial exam Mouth: oral mucosae normal Teeth and gingiva: dentition normal Neck Neck: normal visual inspection and full ROM Back/Spine/Pelvis Cervical Spine: normal cervical lordosis, cervical ROM normal and No cervical spinal tenderness Thoracic/Lumbar Spine: thoracic and lumbar spine normal to inspection, No thoracic spinal tenderness and No lumbar spinal tenderness Neuro Cranial Nerves: CN's II-XI intact bilaterally, PERRL, EOM intact bilaterally and no nystagmus Cognition: normal cognition Speech: speech normal Gait: normal gait Motor: muscle tone normal throughout Course Vital Signs Vital signs: Vital Signs Temperature 36.8 C 10/16/23 13:39 Pulse 76 10/16/23 13:39 Respiratory Rate 18 10/16/23 13:39 Blood Pressure 210/71 H 10/16/23 13:39 Pulse Oximetry 97 10/16/23 13:39 Temperature 36.8 C 10/16/23 13:39 Temperature Source Tympanic 10/16/23 13:39 Pulse 76 10/16/23 13:39 Respiratory Rate 18 10/16/23 13:39 Blood Pressure 210/71 H 10/16/23 13:39 Blood Pressure Position Sitting 10/16/23 13:39 Pulse Oximetry 97 10/16/23 13:39 Oxygen Delivery Method Room Air 10/16/23 13:39 Oxygen Flow Rate 0 10/16/23 13:39 Pain Level 5 10/16/23 13:39 Procedures Laceration Laceration 1: Site: scalp Size (cm): 2 Description: linear and clean Depth: simple, single layer Pre-repair: wound explored and irrigated extensively Skin layer closed with: other (4 neli) Medical Decision Making Sweta is an 87-year-old female who presents to the emergency department for evaluation of head injury. She reports that she turned around quickly while putting something in the microwave, causing her to slip and fall, hitting her head on the microwave stand. She denies loss of consciousness, headache, vision changes, neck pain, dental damage, back pain, nausea/vomiting, loss of bowel or bladder control, extremity numbness/tingling/weakness. She is not on any anticoagulation. She does have a longstanding history of vertigo, has had this extensively treated and managed by her doctors. Physical exam remarkable for 2 cm linear laceration to occiput of scalp. Edges are well-approximated, scant bleeding. No associated bogginess/tenderness of scalp. Full painless range of motion to neck. No C-spine/T-spine/L-spine point tenderness/step-off/deformity. PERRL, EOMs intact. No hemotympanums. No dental damage noted. DDx includes but is not limited to intracranial hemorrhage, simple laceration Wound care: Wound was irrigated extensively with normal saline. Antisepsis with ChloraPrep was applied. 4 neli were used to approximate edges of wound. Patient tolerated procedure well. Patient is unsure of last tetanus, this was checked by IVAN Polo, last booster was given in 2011. Updated booster given today. I independently interpreted the following tests: Head CT, no acute intracranial hemorrhage noted. This was confirmed by radiologist, C-spine CT also negative for acute fracture, subluxation, or other acute abnormality. Workup today overall reassuring, consistent with simple laceration to scalp Reviewed discharge instructions with patient, including wound care, staple removal at PCPs office, and red flags indicating need for return to emergency care. She is agreeable with plan of care Imaging Data Radiologic Study: Radiologist's impression: Exam(s) CT HEAD CERVICAL SPINE WO EXAM: CT HEAD CERVICAL SPINE WO CLINICAL HISTORY: head injury. TECHNIQUE: Imaging Protocol: Axial computed tomography images with coronal and sagittal reformatted images were created and reviewed COMPARISON: CT CT HEAD WO from 06/04/2022 FINDINGS: Head CT Ventricles and Extra axial spaces: Normal in size and morphology for the patient's age. Hemorrhage: None. Cerebral parenchyma: No evidence of mass or acute infarct. Atrophy. Midline shift: None. Brainstem/Cerebellum: Normal. Calvarium: Normal. Visualized Paranasal sinuses/Mastoids: Prior sinus surgery. No significant mucous retention. Soft tissues: Skin neli at scalp near vertex. Air bubbles. Cervical Spine CT BONES: Vertebral body heights are maintained. Alignment is normal. There is no evidence of acute fracture. Severe degenerative disc changes and facet degenerative changes are seen . SOFT TISSUES: No paraspinal hematoma. The airway appears intact. No pneumothorax is seen at the lung apices. IMPRESSION: Head CT: No acute abnormality. C-spine CT: Degenerative changes, no acute abnormality. Quality:SDOH Health Related Social Needs: No Data to Display PFSH All Active Problems B-cell lymphoma of extranodal site (Acute) Soft tissue mass (Acute) Glucose intolerance (Acute) Active Problem List B-cell lymphoma of extranodal site (Acute) Soft tissue mass (Acute) Glucose intolerance (Acute) Medical History Asthma Balance problem CAD (coronary artery disease) Pt. states she has not seen a unisaw operator since 1985, states she walks a mile every day COPD (chronic obstructive pulmonary disease) Disequilibrium Dizziness Downbeat nystagmus Gait disturbance GERD (gastroesophageal reflux disease) Gout Hyperlipidemia Hypertension Nasal polyps Neuropathy Vertigo Vitamin D deficiency Surgical History H/O excision of mass (~06/27/21) excision left buttock soft tissue mass History of angioplasty Pt. states in the 80's History of hysterectomy Hx of nasal polypectomy S/P right knee surgery R knee Family History Brother Diabetes Father Asthma Heart disease Social History Smoking/Tobacco Use Status: Former Tobacco Use Quit Date: 08/18/83 Smoking risk assessment performed?: Yes Alcohol Intake: never Drug use: Never Substance use type: does not use Household members: spouse current occupation: Retired Do you feel safe at home: Yes Do you feel safe in your relationship?: Yes
[2023-10-16 14:16] VITALS: BP 186/69; PULSE 73; O2SAT 96
--- NOTE | 2023-10-16 14:54 | DI.CT_ITS ---
Exam(s) CT HEAD CERVICAL SPINE WO EXAM: CT HEAD CERVICAL SPINE WO CLINICAL HISTORY: head injury. TECHNIQUE: Imaging Protocol: Axial computed tomography images with coronal and sagittal reformatted images were created and reviewed COMPARISON: CT CT HEAD WO from 06/04/2022 FINDINGS: Head CT Ventricles and Extra axial spaces: Normal in size and morphology for the patient's age. Hemorrhage: None. Cerebral parenchyma: No evidence of mass or acute infarct. Atrophy. Midline shift: None. Brainstem/Cerebellum: Normal. Calvarium: Normal. Visualized Paranasal sinuses/Mastoids: Prior sinus surgery. No significant mucous retention. Soft tissues: Skin neli at scalp near vertex. Air bubbles. Cervical Spine CT BONES: Vertebral body heights are maintained. Alignment is normal. There is no evidence of acute frac ture. Severe degenerative disc changes and facet degenerative changes are seen . SOFT TISSUES: No paraspinal hematoma. The airway appears intact. No pneumothorax is seen at the lung apices. IMPRESSION: Head CT: No acute abnormality. C-spine CT: Degenerative changes, no acute abnormality. RADIATION DOSE DELIVERED: 1,207.41mGy.cm Total DLP DATA REPOSITORY: All CT scans at this facility are submitted to the National Radiology Data Registry (NRDR) Dose Index Registry (DIR) with the [employer] [place] (ACR). RADIATION OPTIMIZATION: All CT scans at this facility use at least one of these dose optimization te chniques: automated exposure control; mA and/or kV adjustment per patient size (includes targeted exa ms where dose is matched to clinical indication); or iterative reconstruction.
[2023-10-16 14:57] VITALS: BP 206/58; PULSE 68
[2023-10-16] MEDS: Bacitracin 1 PACKET TP (15:13)
[2023-10-16 15:18] VITALS: BP 192/74; PULSE 70; O2SAT 98
== END 2023-10-16 15:35 | disposition home or self-care (01) ==
PROVIDERS: Emergency Provider Nurse Practitioner Family; PCP Internal Medicine
DX: S09.90XA Unspecified injury of head, initial encounter (principal); S01.01XA Laceration without foreign body of scalp, initial encounter; I10 Essential (primary) hypertension; I25.10 Atherosclerotic heart disease of native coronary artery without angina pectoris; E78.5 Hyperlipidemia, unspecified; J44.9 Chronic obstructive pulmonary disease, unspecified; Z79.899 Other long term (current) drug therapy; W01.198A Fall on same level from slipping, tripping and stumbling with subsequent striking against other object, initial encounter; Y93.89 Activity, other specified; Y92.010 Kitchen of single-family (private) house as the place of occurrence of the external cause; Z23 Encounter for immunization
CPT/HCPCS: 12001; 90471; 90715; 99284; 70450; 72125

== ENCOUNTER 2023-12-03 04:19 | Outpatient (CLI) | payer MEDICARE, SELFPAY ==
[2023-12-03 13:21] LABS: Abs Immature Grans 0.02 10^3/uL (0.0-0.06); Absolute Basophil Count 0.04 10^3/uL (0.0-0.2); Absolute Eosinophil Count 0.11 10^3/uL (0.0-0.7); Absolute Lymphocyte Count 2.15 10^3/uL (1.2-3.4); Absolute Monocyte Count 0.56 10^3/uL (0.1-0.8); Basophils % 0.5; Eosinophils % 1.5; HCT 39.5 % (36.0-46.0); HGB 13.2 g/dL (11.2-15.7); Immature Grans % 0.3; Lymphocytes % 28.7; MCH 30.7 pg (27.0-33.0); MCHC 33.4 % (32.0-36.0); MCV 92 fL (80-95); MPV 10.1 fL (8.0-11.0); Monocytes % 7.5; Neutrophils % 61.5; Platelet Count 183 10^3/uL (130-400); RDW 12.9 % (11.7-14.6); RDW-SD 43.1 fL; WBC 7.48 10^3/uL (4.4-10.8)
[2023-12-03 13:52] LABS: ALT 25 U/L (14-59); AST 16 U/L (15-37); Albumin 3.5 g/dL (3.4-5.0); Alkaline Phosphatase 68 U/L (46-116); Anion Gap 8.4 mmol/L (3-11); BUN 17 mg/dL (7-18); Bilirubin, Total 0.3 mg/dL (0.2-1.0); CO2 28.6 mmol/L (21.0-32.0); CREATININE 0.8 mg/dL (0.55-1.02); Calcium 8.6 mg/dL (8.5-10.1); Chloride 102 mmol/L (98-107); Estimated GFR 70.83 (mL/min/1.73m2); Glucose 176 mg/dL (74-106); LDH 159 U/L (81-234); Potassium 3.8 mmol/L (3.5-5.1); Sodium 139 mmol/L (136-145); Total Protein 6.8 g/dL (6.4-8.2)
== END 2023-12-03 04:20 | disposition home or self-care (01) ==
PROVIDERS: PCP Family Medicine; Visit Provider Internal Medicine Hematology & Oncology
DX: C82.19 Follicular lymphoma grade II, extranodal and solid organ sites (principal)
CPT/HCPCS: 36415; 80053; 83615; 85025

== ENCOUNTER → 2024-03-11 00:53 | Outpatient (CLI) | payer MEDICARE, SELFPAY ==
--- NOTE | 2024-03-11 12:30 | DI.US_ITS ---
APPROVED REPORT EXAM: Comprehensive 2D, Doppler, and color-flow Echocardiogram Patient Location: Out-Patient [facility] Nurse: Jadyn Hager RDCS (AE) Indications: Nonrheumatic aortic valve stenosis Other Information Study Quality: Fair. Technically limited study due to body habitus. Conclusion Normal left ventricular wall thickness and chamber size. Ejection fraction is 55%. Wall motion is n ormal Normal right ventricular size and function Both atria are normal in size Aortic valve is calcified and probably trileaflet. There is minimal aortic stenosis with a mean grad ient of 9 mmHg. There is no aortic regurgitation Mild mitral annular calcification. Mild to moderate mitral regurgitation Ascending aorta measures 3.87 cm Wall motion Left Ventricle Technically limited parasternal imaging. The overall left ventricular systolic function appears nannette l. Regional wall motion is not well visualized but grossly normal. There is no ventricular septal def ect visualized. LVEF is 55%. Right Ventricle The right ventricle is normal size. The right ventricular systolic function is normal. Atria The left atrium size is normal. The right atrium size is normal. The interatrial septum is intact wit h no evidence for an atrial septal defect. Aortic Valve Aortic valve is calcified. Aortic valve is probably trileaflet. Mean gradient is 9 mmHg No aortic reg urgitation is present. Mitral Valve Mild mitral annular calcification. No evidence of mitral valve stenosis. Mild to moderate mitral regu rgitation. Tricuspid Valve The tricuspid valve is normal in structure. There is no tricuspid valve stenosis. Trace tricuspid reg urgitation. Unable to assess PA pressure. Pulmonic Valve The pulmonary valve is normal in structure. There is no pulmonic valvular stenosis. There is no pulmo terry valvular regurgitation. Great Vessels The aortic root is normal in size. The ascending aorta is mild to Aortic arch is not well visualized. moderately dilated. IVC is normal in size and collapses >50% with inspiration. Pericardium There is no pericardial effusion. 2D Dimensions Ao Root d 2.63 cm F: 2.7 - 3.3 Ao Asc Diam d 3.87 cm F: 2.3 - 3.1 M-Mode TAPSE 2.23 cm (M/F) >1.7 Auto EF LV EDV A4C 65.4 mL LV EDV A2C 64.4 mL LV EDV BP 65.2 mL LV ESV A4C 29.8 mL LV ESV A2C 30.2 mL LV ESV BP 30.4 mL LVEF(%) A4C 54.4 % LVEF(%) A2C 53.0 % LVEF(%) BP 53.3 % LV SV A4C 35.5 ml LV SV A2C 34.1 ml LV SV BP 34.8 ml LV CO A4C 2.3 L/min LV CO A2C 2.2 L/min LV CO BP 2.2 L/min HR A4C 64.26 BPM HR A2C 64.40 BPM LV EDV Index (BP) LA Volume LA Length A4C 4.5 cm LA Length A2C 4.9 cm LA Area A4C s 12.58 cm2 LA Area A2C s 16.15 cm2 LA Vol A4C A-L 29.95 mL LA Vol A2C A-L 44.77 mL LA Vol Biplane A-L 38.4 mL LA Vol/BSA A4C A-L LA Vol/BSA A2C A-L LA Vol/BSA BP A-L 23.6 mL/m2 LA Vol A4C MOD 28.1 mL LA Vol A2C MOD 42.0 mL LA Vol BP MOD 35.9 mL RA Volume RA Area A4C 9.5 cm2 RA ESV A4C (A-L) 18.2mL RA Vol/BSA A4C A-L RA Length A4C 4.3 cm RA ESV A4C (MOD) 17.3mL LV Diastology MV E' medial 0.065 (>0.07 m/s) MV E Vmax 0.74 (0.4-1.3 m/s) MV E/E' MED 11.43 (<14) MV A Vmax 1.25 (0.4-1.3 m/s) MV E' lateral 0.062 (>0.1 m/s) E/A Ratio 0.6 MV E/E' LAT 12.10 (<14) MV E' Average 0.063 m/s MV E/E'(average) 11.76 Aortic Valve AoV Vmax 2.04 m/s LVOT Vmax 0.90 m/s AoV Peak Grad 16.6 mmHg LVOT Peak Grad 3.2 mmHg AoV Area (Vmax) 1.52 cm2 LVOT VTI 0.235 m AoV VTI 0.517 m LVOT Mean Grad 1.8 mmHg AoV Mean Min. 1.43 m/s LVOT SV 81.31 mL AoV Mean Grad 9.2 mmHg LVOT Diam s 2.05 cm AoV Area (VTI) 1.57 cm2 AV Regurg Peak Gr. 16.61 mmHg Velocity Ratio 0.44 Mitral Valve MV DT 304 (160-240 msec) MV Vmax TIPS 1.13 m/s MV Mean Grad 1.5 (<2mmHg) MV VTI 0.305 m Pulmonary Valve PV Vmax 0.87 (0.5-1.5 m/s) RVOT Vmax 0.67 m/s PV Peak Grad 3.0 mmHg RVOT Peak Gr. 1.8 mmHg PV Mean Min 0.60 m/s RVOT VTI 0.144 m PV Mean Grad 1.7 mmHg RVOT Mean Gr. 0.9 mmHg Tricuspid Valve RA Pressure 3.00 mmHg TV S' 0.12 m/s
== END ==
PROVIDERS: PCP Family Medicine; Visit Provider Family Medicine
DX: I35.0 Nonrheumatic aortic (valve) stenosis (principal)
CPT/HCPCS: 93306

== ENCOUNTER 2024-06-02 05:02 | Outpatient (CLI) | payer MEDICARE, SELFPAY ==
[2024-06-02 10:31] LABS: Abs Immature Grans 0.02 10^3/uL (0.0-0.06); Absolute Basophil Count 0.04 10^3/uL (0.0-0.2); Absolute Eosinophil Count 0.16 10^3/uL (0.0-0.7); Absolute Lymphocyte Count 2.38 10^3/uL (1.2-3.4); Absolute Monocyte Count 0.72 10^3/uL (0.1-0.8); Absolute Neutrophil Count 3.88 10^3/uL (1.2-6.7); Basophils % 0.6 %; Eosinophils % 2.2 %; HCT 42.5 % (36.0-46.0); HGB 14.2 g/dL (11.2-15.7); Immature Grans % 0.3 %; Lymphocytes % 33.1 %; MCH 30.8 pg (27.0-33.0); MCHC 33.4 % (32.0-36.0); MCV 92 fL (80-95); MPV 10.2 fL (8.0-11.0); Neutrophils % 53.8 %; Platelet Count 182 10^3/uL (130-400); RBC 4.61 10^6/uL (3.93-5.22); RDW-SD 43.8 fL
[2024-06-02 10:59] LABS: ALT 22 U/L (14-59); AST 17 U/L (15-37); Albumin 3.7 g/dL (3.4-5.0); Alkaline Phosphatase 72 U/L (46-116); Anion Gap 7.3 mmol/L (3-11); BUN 16 mg/dL (7-18); Bilirubin, Total 0.38 mg/dL (0.2-1.0); CO2 29.7 mmol/L (21.0-32.0); CREATININE 0.8 mg/dL (0.55-1.02); Calcium 9.3 mg/dL (8.5-10.1); Chloride 103 mmol/L (98-107); Estimated GFR 70.83 (mL/min/1.73m2); Glucose 109 mg/dL (74-106); LDH 160 U/L (81-234); Sodium 140 mmol/L (136-145); Total Protein 7.4 g/dL (6.4-8.2)
== END 2024-06-02 05:03 | disposition home or self-care (01) ==
PROVIDERS: Internal Medicine Hematology & Oncology; PCP Family Medicine; Visit Provider Internal Medicine Hematology & Oncology
DX: C82.10 Follicular lymphoma grade II, unspecified site (principal)
CPT/HCPCS: 36415; 80053; 83615; 85025

== ENCOUNTER 2025-01-13 03:14 | Outpatient (CLI) | payer MEDICARE, SELFPAY ==
[2025-01-13 08:28] LABS: Abs Immature Grans 0.03 10^3/uL (0.0-0.06); Absolute Basophil Count 0.04 10^3/uL (0.0-0.2); Absolute Eosinophil Count 0.15 10^3/uL (0.0-0.7); Absolute Monocyte Count 0.64 10^3/uL (0.1-0.8); Absolute Neutrophil Count 4.81 10^3/uL (1.2-6.7); Basophils % 0.5 %; Eosinophils % 1.8 %; HCT 42.4 % (36.0-46.0); HGB 13.5 g/dL (11.2-15.7); Immature Grans % 0.4 %; Lymphocytes % 31.4 %; MCH 29.1 pg (27.0-33.0); MCHC 31.8 % (32.0-36.0); MCV 91 fL (80-95); MPV 9.7 fL (8.0-11.0); Monocytes % 7.7 %; Neutrophils % 58.2 %; Platelet Count 204 10^3/uL (130-400); RBC 4.64 10^6/uL (3.93-5.22); RDW 13.5 % (11.7-14.6); RDW-SD 45.9 fL; WBC 8.27 10^3/uL (4.4-10.8)
[2025-01-13 08:43] LABS: ALT 18 U/L (14-59); AST 16 U/L (15-37); Albumin 3.8 g/dL (3.4-5.0); Alkaline Phosphatase 90 U/L (46-116); Anion Gap 6.8 mmol/L (3-11); BUN 13 mg/dL (7-18); Bilirubin, Total 0.4 mg/dL (0.2-1.0); CO2 30.2 mmol/L (21.0-32.0); CREATININE 0.8 mg/dL (0.55-1.02); Calcium 9.2 mg/dL (8.5-10.1); Chloride 100 mmol/L (98-107); Estimated GFR 70.39 (mL/min/1.73m2); Glucose 128 mg/dL (74-106); LDH 148 U/L (81-234); Potassium 3.2 mmol/L (3.5-5.1); Sodium 137 mmol/L (136-145); Total Protein 7.4 g/dL (6.4-8.2)
== END 2025-01-13 03:15 | disposition home or self-care (01) ==
PROVIDERS: PCP Family Medicine; Visit Provider Internal Medicine Hematology & Oncology
DX: C82.19 Follicular lymphoma grade II, extranodal and solid organ sites (principal)
CPT/HCPCS: 36415; 80053; 83615; 85025

== ENCOUNTER 2025-07-27 00:53 | Outpatient (CLI) | payer MEDICARE, SELFPAY ==
[2025-07-27 13:28] LABS: Abs Immature Grans 0.01 10^3/uL (0.0-0.06); HCT 36.7 % (36.0-46.0); HGB 12.3 g/dL (11.2-15.7); Immature Grans % 0.2 %; MCH 30.8 pg (27.0-33.0); MCHC 33.5 % (32.0-36.0); MCV 92 fL (80-95); MPV 10.0 fL (8.0-11.0); Platelet Count 179 10^3/uL (130-400); RBC 4.00 10^6/uL (3.93-5.22); RDW 13.2 % (11.7-14.6); RDW-SD 44.3 fL; WBC 6.30 10^3/uL (4.4-10.8)
[2025-07-27 13:55] LABS: LDH 159 U/L (120-246)
[2025-07-27 13:56] LABS: ALT 11 U/L (10-49); AST 17 U/L (<34); Albumin 3.7 g/dL (3.2-5.0); Alkaline Phosphatase 60 U/L (46-116); Anion Gap 8.6 mmol/L (3-11); BUN 19 mg/dL (9-23); Bilirubin, Total 0.4 mg/dL (0.2-1.2); CO2 28.4 mmol/L (20.0-31.0); Calcium 8.6 mg/dL (8.3-10.6); Chloride 104 mmol/L (98-107); Glucose 153 mg/dL (74-106); Potassium 3.6 mmol/L (3.5-5.1); Sodium 141 mmol/L (136-145); Total Protein 6.1 g/dL (5.7-8.2)
== END 2025-07-27 00:54 | disposition home or self-care (01) ==
LOC: LBO 00:54
PROVIDERS: PCP Family Medicine; Visit Provider Nurse Practitioner Adult Health
DX: C82.19 Follicular lymphoma grade II, extranodal and solid organ sites (principal)
CPT/HCPCS: 36415; 80053; 83615; 85025